=== PATIENT | male | born 1995 | race Caucasian/White ===

== ENCOUNTER 2016-11-29 15:46 | Emergency (ER) | payer BC ==
--- NOTE | 2016-11-29 16:12 | CPEKG ---
Heart Rate: 92 RR Interval: 652 P-R Interval: 125 QRSD Interval: 92 QT Interval: 372 QTC Interval: 461 P [place]: 73 QRS [place]: 69 T Wave [place]: 34 EKG Severity - NORMAL ECG - EKG Impression: SINUS RHYTHM Electronically Signed By: Jonatan Brink 29-Nov-2016 16:13:01
[2016-11-29] MEDS ORDERED: ONDANSETRON 4 MG/2 ML VIAL ONE (16:15)
--- NOTE | 2016-11-29 16:23 | EDPHY ---
H & P Smoking Status: Never smoked Time Seen by Provider: 11/29/16 15:59 HPI/ROS: CHIEF COMPLAINT: Cough, vomiting, sore throat HISTORY OF PRESENT ILLNESS: 21-year-old male presents to the emergency department complaining of feeling sick for the last 1 week. The patient states that he started having cold symptoms including nasal congestion, rhinorrhea cough. He developed sore throat. He developed fever a few days ago. He was seen at urgent care and was given Tessalon Perles and Zofran. This morning he began vomiting. He developed diffuse aching all over. No known ill contacts. No recent travel. He denies substance abuse or alcohol. He does not get flu shots. REVIEW OF SYSTEMS: Constitutional: Subjective fevers, chills Eyes: No double or blurry vision. ENT: sore throat. Respiratory: Cough, shortness of breath Cardiac: No chest pain. Gastrointestinal: No abdominal pain, vomiting or diarrhea. Genitourinary: No dysuria. Musculoskeletal: No neck or back pain. Skin: No rashes. Neurological: No headache. (Doris Malhotra) Past Medical/Surgical History: Negative (Doris Malhotra) Social History: Single (Doris Malhotra) Physical Exam: General Appearance: Alert, no distress. Temp 37.6, heart rate 104, 136/78, 98 % on room air. Eyes: Pupils equal and round. Extraocular motions are all intact. ENT: Mouth: Mucous membranes moist. Respiratory: No wheezing, rhonchi, or rales, lungs are clear to auscultation. Cardiovascular: Regular rate and rhythm. Gastrointestinal: Abdomen is soft and nontender, no masses, no rebound or guarding, bowel sounds normal. Neurological: Alert and oriented x 3, cranial nerves II through XII grossly intact Skin: Warm and dry, no rashes. Musculoskeletal: Nontender to palpate along the cervical, thoracic or lumbar spine. Neck is supple. Extremities: Full range of motion and no peripheral edema. Psychiatric: Patient is oriented X 3, there is no agitation. (Doris Malhotra) Constitutional: Initial Vital Signs Temperature (C) 37.6 C 11/29/16 15:50 Heart Rate 104 H 11/29/16 15:50 Respiratory Rate 22 H 11/29/16 15:50 Blood Pressure 136/78 H 11/29/16 15:50 O2 Sat (%) 98 11/29/16 15:50 O2 Delivery Mode Room Air O2 (L/minute) 1 Allergies/Adverse Reactions: No Known Allergies Allergy (Verified 11/29/16 15:50) Home Medications: Medication Instructions Recorded Azithromycin [Zithromax tab 250 mg] 250 mg PO DAILY #6 tab 11/29/16 Medical Decision Making - Diagnostics Imaging: I viewed and interpreted images myself - Diagnostics EKG Interpretation: 12-lead EKG interpreted by me; official reading is in trace master. My interpretation is sinus rhythm rate 90 normal intervals and no ischemic changes. (Jonatan Brink) ED Course/Re-evaluation: 21-year-old male presents to the emergency department with nausea, vomiting and diarrhea. The patient has had cold symptoms for the last 1 week. Subjective fevers and chills. No abdominal pain. No chest pain or difficulty breathing. No rash. No recent travel. The patient had vasovagal episode after the nurse at drawn his blood. He did not fall and hit his head. He became extremely diaphoretic. EKG was within normal limits. Laboratory studies are unremarkable. Chest x-ray reveals bilateral lower lobe pneumonia. Patient was given 1 g of IV Rocephin in the emergency department and will be discharged with oral Zithromax. The case was discussed with Dr. Jonatan Brink, secondary supervising physician, who agrees with treatment and plan. (Doris Malhotra) Differential Diagnosis: Including but not limited to influenza, viral upper respiratory infection, strep pharyngitis, mononucleosis, bronchitis, pneumonia, gastritis, dehydration (Doris Malhotra) Other Provider: PHYSICIAN DOCUMENTATION: The patient was evaluated and managed by the Physician Truck Greaser and myself. I have reviewed the chart and agree with the findings and plan of care as documented. In addition, I examined the patient myself at 1740. History confirmed as cough and fever, symptoms for approximately 1 week. Physical findings as follows: lungs clear, normal O2 sat, speaks in full sentences. Chest x-ray reviewed, feel he is good candidate for outpatient pneumonia treatment. PE considered, think unlikely. I am the secondary supervising physician. (Jonatan Brink) - Data Points Laboratory Results: Laboratory Results 11/29/16 16:08 11/29/16 16:08 Medications Given: Discontinued Medications Ceftriaxone Sodium/Dextrose (Rocephin 1 Gm (Premix)) 50 mls @ 100 mls/hr IV EDNOW ONE PRN Reason: Protocol Stop: 11/29/16 18:18 Last Admin: 11/29/16 18:04 Dose: 50 mls Lorazepam (Ativan Injection) 0.5 mg IVP EDNOW ONE Stop: 11/29/16 16:28 Last Admin: 11/29/16 16:34 Dose: 0.5 mg Departure - Departure Disposition: Home, Routine, Self-Care Clinical Impression: Pneumonia Qualifiers: Pneumonia type: due to unspecified organism Laterality: bilateral Lung location : lower lobe of lung Qualified Code(s): J18.9 - Pneumonia, unspecified organism Condition: Good Instructions: Bacterial Pneumonia (ED) Additional Instructions: Zithromax as directed for 5 days. Follow up with primary care provider on Sunday to recheck. Return to the emergency department if you develop shortness of breath, recurring fever, or if you feel worse in any way. You have an incidental pulmonary nodule in the right lower lobe of your long. Radiologist is recommending repeat chest x-ray in 3 months to make sure that this has resolved. Referrals: Gillian Box MD [Medical Doctor] - 1-2 days without fail (Primary care provider senior market intelligence consultant) Prescriptions: Azithromycin [Zithromax tab 250 mg] 250 mg PO DAILY #6 tab
[2016-11-29] MEDS ORDERED: LORazepam 2 MG/ML INJ ONE (16:24)
[2016-11-29] MEDS ORDERED: LORazepam 2 MG/ML INJ IVP ONE (16:27)
[2016-11-29 16:53] LABS: ANION GAP 16 mEq/L (8-16); CALCIUM 9.6 mg/dL (8.5-10.4); CARBON DIOXIDE 22 mEq/l (22-31); CHLORIDE 100 mEq/L (97-110); CREATININE 0.9 mg/dL (0.7-1.3); GLOMERULAR FILTRATION RATE > 60; GLUCOSE 93 mg/dL (70-100); POTASSIUM 4.1 mEq/L (3.5-5.2); SODIUM 138 mEq/L (134-144)
[2016-11-29 16:54] LABS: % IMMATURE GRANULYOCYTES 0.6 % (0.0-1.1); ABSOLUTE IMMATURE GRANULOCYTES 0.07 10^3/uL (0.00-0.10); ADD DIFF? NO; ADD MORPH? NO; ADD SCAN? NO; ATYPICAL LYMPHOCYTE FLAG 80 (0-99); FRAGMENT RBC FLAG 0 (0-99); HEMATOCRIT 42.9 % (40.0-51.0); HEMOGLOBIN 15.1 g/dL (13.7-17.5); LEFT SHIFT FLG 0 (0-99); LIPEMIA HEMOLYSIS FLAG 90 (0-99); MEAN CELL HEMOGLOBIN 29.8 pg (27.9-34.1); MEAN CELL HEMOGLOBIN CONCENTR. 35.2 g/dL (32.4-36.7); MEAN CELL VOLUME 84.8 fL (81.5-99.8); MEAN PLATELET VOLUME 11.3 fL (8.7-11.7); PLATELET CLUMPS FLAG 10 (0-99); PLATELET COUNT 283 10^3/uL (150-400); RED BLOOD CELL COUNT 5.06 10^6/uL (4.40-6.38); RED CELL DISTRIBUTION WIDTH 11.6 % (11.5-15.2)
[2016-11-29 18:29] VITALS: BP 122/78; PULSE 98; RESP 14; TEMP 99; O2SAT 92
== END 2016-11-29 18:56 | disposition home or self-care (01) ==
DX: J18.9 Pneumonia, unspecified organism (principal)
CPT/HCPCS: 96365; J0696; J2060; J2405

== ENCOUNTER 2017-04-11 17:09 | Emergency (ER) | payer BC ==
[2017-04-11] MEDS ORDERED: OXYCODONE/APAP 5/325 TAB PO ONE (17:18)
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
[2017-04-11 18:05] VITALS: BP 130/87; PULSE 64; RESP 16; TEMP 97.7; O2SAT 98
== END 2017-04-11 18:05 | disposition home or self-care (01) ==
PROC: 2W2LX4Z Dressing of Right Lower Extremity using Bandage (ICD-10-PCS; principal; 2017-04-11)
DX: T23.231A Burn of second degree of multiple right fingers (nail), not including thumb, initial encounter (principal); T23.222A Burn of second degree of single left finger (nail) except thumb, initial encounter; T31.0 Burns involving less than 10% of body surface; X19.XXXA Contact with other heat and hot substances, initial encounter; Y92.511 Restaurant or cafe as the place of occurrence of the external cause; Y99.0 Civilian activity done for income or pay; Y93.89 Activity, other specified